=== PATIENT | female | born 1995 | race Caucasian/White ===

== ENCOUNTER 2024-04-26 12:55 | Emergency (ER) | payer MEDICAID ==
[2024-04-26 14:19] LABS: CORONAVIRUS COVID-19 NAA NEGATIVE (NEGATIVE); INFLUENZA A NAA NEGATIVE (NEGATIVE); INFLUENZA B NAA NEGATIVE (NEGATIVE); RESPIRATORY SYNCYTIAL VIR NAA NEGATIVE (NEGATIVE)
== END 2024-04-26 14:40 | disposition home or self-care (01) ==
LOC: JP.ED 12:55
DX: J06.9 Acute upper respiratory infection, unspecified (principal); Z79.899 Other long term (current) drug therapy; Z88.1 Allergy status to other antibiotic agents
CPT/HCPCS: 0241U; 99284

== ENCOUNTER 2024-09-02 16:14 | Emergency (ER) | payer MEDICAID ==
[2024-09-02 16:39] LABS: APPEARANCE,URINE SLIGHTLY CLOUDY (CLEAR); BILIRUBIN,URINE NEGATIVE (NEGATIVE); COLOR,URINE YELLOW (YELLOW); GLUCOSE,URINE NEGATIVE (NEGATIVE); KETONES,URINE NEGATIVE (NEGATIVE); LEUKOCYTE ESTERASE,URINE NEGATIVE (NEGATIVE); NITRITE,URINE NEGATIVE (NEGATIVE); OCCULT BLOOD,URINE NEGATIVE (NEGATIVE); PH,URINE 6.5 (5.0-8.0); PROTEIN,URINE NEGATIVE (NEGATIVE); UROBILINOGEN,URINE 0.2 EU/dL (0.2-1.0)
[2024-09-02 17:00] LABS: AMORPHOUS SEDIMENT,URINE NOT SEEN; BACTERIA,URINE MODERATE; EPITHELIAL CELLS,URINE FEW; MUCUS,URINE NOT SEEN; RBC,URINE 0-5 (0-5)
[2024-09-02 17:45] LABS: BASOPHILS ABSOLUTE AUTO 0.06 K/uL (0.00-0.10); BASOPHILS PERCENT AUTO 0.7 % (0.1-1.3); EOSINOPHILS ABSOLUTE AUTO 0.31 K/uL (0.00-0.40); EOSINOPHILS PERCENT AUTO 3.6 % (0.0-5.4); HEMATOCRIT 42.3 % (34.3-46.0); IMMATURE GRAN PERCENT AUTO 0.2 % (0.0-0.7); LYMPHOCYTES ABSOLUTE AUTO 1.65 K/uL (0.8-3.3); MEAN CORPUSCULAR HEMOGLOBIN 32.8 pg (31.6-35.5); MEAN CORPUSCULAR HGB CONC 35.5 g/dL (31.6-35.5); MEAN CORPUSCULAR VOLUME 92.6 fL (81.4-99.0); MONOCYTES ABSOLUTE AUTO 0.79 K/uL (0.20-0.90); MONOCYTES PERCENT AUTO 9.1 % (3.3-12.6); NEUTROPHILS ABSOLUTE AUTO 5.87 K/uL (1.0-7.6); NEUTROPHILS PERCENT AUTO 67.4 % (40.0-78.1); PLATELET COUNT,PLT 211 K/uL (130-375); RED BLOOD CELL COUNT 4.57 M/uL (3.77-5.24); WHITE BLOOD CELL COUNT,WBC 8.7 K/uL (3.2-11.0)
[2024-09-02 17:48] LABS: IMMATURE GRAN ABSOLUTE AUTO 0.02 K/uL (0.00-0.23)
[2024-09-02 18:06] LABS: ALANINE AMINOTRANSFERASE,ALT 56 U/L (12-78); ALBUMIN 3.6 g/dL (3.4-5.0); ALKALINE PHOSPHATASE 102 U/L (46-116); ASPARTATE AMNIOTRANSFERASE,AST 29 U/L (15-37); BILIRUBIN TOTAL 0.3 mg/dL (0.2-1.0); BLOOD UREA NITROGEN,BUN 13 mg/dL (7-18); CALCIUM 9.2 mg/dL (8.5-10.1); CARBON DIOXIDE,CO2 27 mmol/L (21-32); CHLORIDE,CL 103 mmol/L (100-108); CREATININE 0.7 mg/dL (0.6-1.0); EST CRCL DRUG DOSING (CG) 95.48 mL/min; ESTIMATED GFR 121 mL/min (>60); GLUCOSE RANDOM 97 mg/dL (74-106); POTASSIUM,K 4.1 mmol/L (3.6-5.2); PROTEIN TOTAL,TP 7.3 g/dL (6.4-8.2); SODIUM,NA 138 mmol/L (140-148)
[2024-09-02 18:07] LABS: ANION GAP 12.1 mmol/L (5.0-14.0)
[2024-09-02] MEDS: Sodium Chloride 0.9% 1,000 ML IV ONE (18:12)
[2024-09-02] MEDS: Ondansetron 4 MG/2 ML SDV IVPUSH ONE (18:13)
[2024-09-02] MEDS: Ketorolac 15 MG/ML SDV IVPUSH ONE (18:13)
[2024-09-02] MEDS: Sodium Chloride 0.9% 10 ML Syringe FLUSH PRN (18:13)
== END 2024-09-02 19:16 | disposition home or self-care (01) ==
LOC: JP.ED 16:14
DX: K59.00 Constipation, unspecified (principal); N39.0 Urinary tract infection, site not specified; F17.210 Nicotine dependence, cigarettes, uncomplicated; Z90.49 Acquired absence of other specified parts of digestive tract; Z79.899 Other long term (current) drug therapy; Z88.0 Allergy status to penicillin
CPT/HCPCS: 36415; 74176; 80053; 81001; 81025; 85025; 87086; 87088; 87186; 96361; 96374; 96375; 99284; J1885; J2405; J7030; 99283

== ENCOUNTER 2025-01-27 12:03 | Emergency (ER) | payer MEDICAID ==
[2025-01-27 13:06] LABS: APPEARANCE,URINE SLIGHTLY CLOUDY (CLEAR); BILIRUBIN,URINE NEGATIVE (NEGATIVE); COLOR,URINE YELLOW (YELLOW); GLUCOSE,URINE NEGATIVE (NEGATIVE); KETONES,URINE NEGATIVE (NEGATIVE); LEUKOCYTE ESTERASE,URINE MODERATE (NEGATIVE); NITRITE,URINE NEGATIVE (NEGATIVE); OCCULT BLOOD,URINE NEGATIVE (NEGATIVE); PROTEIN,URINE NEGATIVE (NEGATIVE); UROBILINOGEN,URINE 0.2 EU/dL (0.2-1.0)
[2025-01-27 13:19] LABS: AMORPHOUS SEDIMENT,URINE MODERATE; BACTERIA,URINE FEW; EPITHELIAL CELLS,URINE MANY; MUCUS,URINE NOT SEEN; RBC,URINE NOT SEEN (0-5)
== END 2025-01-27 14:03 | disposition home or self-care (01) ==
LOC: JP.ED 12:03
DX: O23.591 Infection of other part of genital tract in pregnancy, first trimester (principal); B96.89 Other specified bacterial agents as the cause of diseases classified elsewhere; F17.200 Nicotine dependence, unspecified, uncomplicated; Z88.0 Allergy status to penicillin; Z91.040 Latex allergy status; Z79.899 Other long term (current) drug therapy; Z90.49 Acquired absence of other specified parts of digestive tract; Z3A.13 13 weeks gestation of pregnancy
CPT/HCPCS: 81001; 87086; 87210; 99283

== ENCOUNTER 2025-04-05 19:36 | Emergency (ER) | payer MEDICAID | END 2025-04-05 21:20 | disposition home or self-care (01) | LOC: JP.ED 19:36 | DX: J06.9 Acute upper respiratory infection, unspecified (principal); B97.89 Other viral agents as the cause of diseases classified elsewhere; F17.200 Nicotine dependence, unspecified, uncomplicated; M19.90 Unspecified osteoarthritis, unspecified site; Z79.899 Other long term (current) drug therapy; Z88.1 Allergy status to other antibiotic agents; Z91.040 Latex allergy status; Z90.49 Acquired absence of other specified parts of digestive tract | CPT/HCPCS: 99283; U0002 ==

== ENCOUNTER 2025-07-09 21:00 | Emergency (ER) | payer MEDICAID ==
[2025-07-09 21:31] LABS: PLATELET COUNT,PLT 263 K/uL (130-375); RED BLOOD CELL COUNT 3.26 M/uL (3.77-5.24); WHITE BLOOD CELL COUNT,WBC 9.0 K/uL (3.2-11.0)
[2025-07-09 21:47] LABS: BAND ABSOLUTE MAN 0.09 K/uL; BAND PERCENT MAN 1 % (5-11); EOSINOPHILS ABSOLUTE MAN 0.27 K/uL (0.00-0.40); EOSINOPHILS PERCENT MAN 3 % (2-4); LYMPHOCYTES ABSOLUTE MAN 2.16 K/uL (0.8-3.3); LYMPHOCYTES PERCENT MAN 24 % (24-44); MONOCYTES ABSOLUTE MAN 0.18 K/uL (0.20-0.90); MONOCYTES PERCENT MAN 2 % (2-6); NEUTROPHILS ABSOLUTE MAN 6.30 K/uL (1.0-7.6); SEG NEUTROPHILS PERCENT MAN 70 % (36-66)
[2025-07-09 21:48] LABS: ATYPICAL LYMPHOCYTES RARE
[2025-07-09 21:53] LABS: A/G RATIO 0.6 (1.2-2.2); ALANINE AMINOTRANSFERASE,ALT 63 U/L (12-78); ASPARTATE AMNIOTRANSFERASE,AST 31 U/L (15-37); BILIRUBIN TOTAL 0.2 mg/dL (0.2-1.0); BLOOD UREA NITROGEN,BUN 14 mg/dL (7-18); CARBON DIOXIDE,CO2 23 mmol/L (21-32); CHLORIDE,CL 104 mmol/L (100-108); CREATININE 0.7 mg/dL (0.6-1.0); EST CRCL DRUG DOSING (CG) 90.29 mL/min; ESTIMATED GFR 121 mL/min (>60); GLUCOSE RANDOM 91 mg/dL (74-106); POTASSIUM,K 3.4 mmol/L (3.6-5.2); PROTEIN TOTAL,TP 5.7 g/dL (6.4-8.2); SODIUM,NA 138 mmol/L (140-148)
[2025-07-09 22:46] LABS: APPEARANCE,URINE CLEAR (CLEAR); GLUCOSE,URINE NEGATIVE (NEGATIVE); OCCULT BLOOD,URINE LARGE (NEGATIVE)
[2025-07-09 22:57] LABS: SQUAMOUS EPITHELIAL CELLS,UR FEW /HPF; UROTHELIAL CELLS,URINE NOT SEEN /HPF
== END 2025-07-09 23:06 | disposition home or self-care (01) ==
LOC: JP.ED 21:00
DX: O99.893 Other specified diseases and conditions complicating puerperium (principal); R60.0 Localized edema; O99.335 Smoking (tobacco) complicating the puerperium; F17.200 Nicotine dependence, unspecified, uncomplicated; Z88.0 Allergy status to penicillin; Z91.040 Latex allergy status; Z88.8 Allergy status to other drugs, medicaments and biological substances; Z79.899 Other long term (current) drug therapy; Z90.49 Acquired absence of other specified parts of digestive tract
CPT/HCPCS: 36415; 80053; 81001; 85025; 99284

== ENCOUNTER 2025-07-12 17:18 | Emergency (ER) | payer MEDICAID ==
[2025-07-12 18:06] LABS: PLATELET COUNT,PLT 311 K/uL (130-375); RED BLOOD CELL COUNT 3.79 M/uL (3.77-5.24); WHITE BLOOD CELL COUNT,WBC 8.3 K/uL (3.2-11.0)
[2025-07-12 18:21] LABS: ATYPICAL LYMPHOCYTES FEW; BAND ABSOLUTE MAN 0.08 K/uL; BAND PERCENT MAN 1 % (5-11); EOSINOPHILS ABSOLUTE MAN 0.42 K/uL (0.00-0.40); EOSINOPHILS PERCENT MAN 5 % (2-4); LYMPHOCYTES ABSOLUTE MAN 1.91 K/uL (0.8-3.3); LYMPHOCYTES PERCENT MAN 23 % (24-44); MONOCYTES ABSOLUTE MAN 0.42 K/uL (0.20-0.90); MONOCYTES PERCENT MAN 5 % (2-6); NEUTROPHILS ABSOLUTE MAN 5.48 K/uL (1.0-7.6); SEG NEUTROPHILS PERCENT MAN 66 % (36-66)
[2025-07-12] MEDS: Acetaminophen/oxyCODONE 325-5 MG Tab PO ONE (18:58)
== END 2025-07-12 20:00 | disposition home or self-care (01) ==
LOC: JP.ED 17:18
DX: O86.12 Endometritis following delivery (principal); F17.200 Nicotine dependence, unspecified, uncomplicated; J45.909 Unspecified asthma, uncomplicated; M19.90 Unspecified osteoarthritis, unspecified site; Z88.1 Allergy status to other antibiotic agents; Z91.040 Latex allergy status
CPT/HCPCS: 36415; 84550; 85025; 86140; 96365; 99284; A9270; J0690

== ENCOUNTER 2025-08-04 00:15 | Emergency (ER) | payer MEDICAID ==
[2025-08-04] MEDS: Lidocaine 2% Viscous Solution 15 ML UD PO ONE (01:04)
== END 2025-08-04 01:34 | disposition home or self-care (01) ==
LOC: JP.ED 00:15
DX: K64.5 Perianal venous thrombosis (principal); F17.200 Nicotine dependence, unspecified, uncomplicated; Z86.16 Personal history of COVID-19; Z79.899 Other long term (current) drug therapy; Z91.018 Allergy to other foods; Z91.040 Latex allergy status; Z88.0 Allergy status to penicillin
CPT/HCPCS: 96372; 99282; A9270; J1171; J3490

== ENCOUNTER 2025-08-04 08:56 | Day surgery (SDC) | payer MEDICAID ==
[~2025-08-04 08:56] MED LIST: Lidocaine 1% with EPINEPHrine 1:100,000 50 ML MDV ONE; Lidocaine 2% Jelly 10 ML Urojet ONE
[2025-08-04] MEDS: Lactated Ringers 1,000 ML IV SCH (09:52)
[2025-08-04] MEDS ORDERED: Ondansetron 4 MG/2 ML SDV ONE (10:36)
[2025-08-04] MEDS ORDERED: Propofol 200 MG/20 ML SDV ONE (10:36)
[2025-08-04] MEDS ORDERED: Midazolam 1 MG/ML 2 ML SDV ONE (10:36)
[2025-08-04] MEDS ORDERED: fentaNYL 100 MCG/2 ML SDV ONE (10:36)
[2025-08-04] MEDS: Acetaminophen/HYDROcodone 325-5 MG Tab PO PRN (12:30)
== END 2025-08-04 13:00 | disposition home or self-care (01) ==
LOC: JP.SDS 08:56
PROVIDERS: ATTEND Surgery
DX: K64.5 Perianal venous thrombosis (principal); K64.4 Residual hemorrhoidal skin tags; F41.9 Anxiety disorder, unspecified; J45.909 Unspecified asthma, uncomplicated; F17.200 Nicotine dependence, unspecified, uncomplicated; Z79.899 Other long term (current) drug therapy; Z86.16 Personal history of COVID-19; Z91.018 Allergy to other foods; Z91.040 Latex allergy status; Z88.0 Allergy status to penicillin
CPT/HCPCS: 00902-QZ; 81025; 88304; 96372; 99282; 99284; A9270-GY; J0665; J0690; J1171; J2250; J2405; J2704; J3010; J7120